=== PATIENT | male | born 1985 | race Caucasian/White ===

== ENCOUNTER 2019-02-19 00:49 | Inpatient (IN) ==
[2019-02-19 01:16] LABS: Bilirubin,Urine Negative (Negative); Blood,Urine Negative (Negative); Clarity,Urine Clear (Clear); Color,Urine Yellow (Yellow); Glucose,Urine (UA) Normal (Normal); Ketones,Urine Negative (Negative); Leukocyte Esterase,Urine Negative (Negative); Nitrite,Urine Negative (Negative); Protein,Urine Negative (Neg-Trace); Specific Gravity,Urine 1.009 (1.010-1.025); Urobilinogen,Urine Normal (Normal)
[2019-02-19 01:26] LABS: Amphetamine Screen,Urine Negative ng/mL (Cutoff=1000); Barbiturate Screen,Urine Negative ng/mL (Cutoff=200); Benzodiazepines Screen,Urine Negative ng/mL (Cutoff=200); Cannabinoid Screen,Urine Negative ng/mL (Cutoff = 50); Cocaine Screen,Urine Negative ng/mL (Cutoff= 300); Opiate Screen,Urine Negative ng/mL (Cutoff=300); Phencyclidine Screen,Urine Negative ng/mL (Cutoff=25)
[2019-02-19 02:04] LABS: Acetaminophen < 10 mcg/mL (10-20); BUN/Creatinine Ratio 15 (6-26); Basophils # 0.1 K/mcL (0.0-0.2); Basophils % 0.7 %; Blood Urea Nitrogen 12 mg/dL (6-20); Calcium 9.1 mg/dL (8.6-10.3); Carbon Dioxide 21 mEq/L (23-29); Chloride 109 mEq/L (98-107); Eosinophils # 0.1 K/mcL (0.0-0.6); Eosinophils % 1.1 %; Ethanol 110 mg/dL (Less than 10); Glucose 96 mg/dL (70-105); Hematocrit 46.9 % (37.5-50.1); Hemoglobin 16.6 g/dL (12.9-16.9); Immature Granulocytes % 0.5 % (0-4); Lymphocytes # 1.8 K/mcL (0.6-4.6); Lymphocytes % 14.7 %; Mean Corpuscular HGB Conc 35.4 g/dL (31.6-35.5); Mean Corpuscular Hemoglobin 29.5 pg (28.0-33.3); Mean Corpuscular Volume 83.3 fL (83.0-100.0); Mean Platelet Volume 10.7 fL (9.4-12.4); Monocytes # 0.5 K/mcL (0.0-1.3); Monocytes % 4.2 %; Neutrophils # 9.6 K/mcL (1.6-8.9); Osmolality,Calculated 288 (280-300); Platelet Count 269 K/mcL (140-400); Potassium 3.7 mEq/L (3.5-5.1); Red Blood Count 5.63 M/mcL (4.19-5.50); Red Cell Distribution Width 12.2 % (11.5-14.5); Salicylate < 2.5 mg/dL (15.0-30.0); Segmented Neutrophils % 78.8 %; Sodium 139 mEq/L (136-145); White Blood Count 12.2 K/mcL (4.3-11.1); eGFR For African Americans > 60 (> 60); eGFR For Non-African Americans > 60 (> 60)
[2019-02-19] MEDS ORDERED: *HR* LORazepam 1 MG TABLET PO PRN (05:52)
[2019-02-19] MEDS ORDERED: Haloperidol Lactate 5 MG/ML VIAL IM PRN (05:52)
[2019-02-19] MEDS ORDERED: MOM Conc 10 ML UD.LIQ PO PRN (05:52)
[2019-02-19] MEDS ORDERED: traZODone 50 MG TABLET PO PRN (05:52)
[2019-02-19] MEDS ORDERED: *HR* LORazepam 2 MG/ML VIAL IM PRN (05:52)
[2019-02-19] MEDS ORDERED: Ibuprofen 400 MG TABLET PO PRN (05:52)
[2019-02-19] MEDS ORDERED: hydrOXYzine pamoate 25 MG CAPSULE PO PRN (05:52)
[2019-02-19] MEDS ORDERED: Mag Hydrox/Al Hydrox/Simeth 30 ML UDC PO PRN (05:52)
[2019-02-19] MEDS: Nicotine 21 MG PATCH.TD24 TD SCH (12:24)
[2019-02-19] MEDS: FLUoxetine 20 MG CAPSULE PO SCH (12:25)
[2019-02-20] MEDS: Nicotine 21 MG PATCH.TD24 TD SCH (08:32)
[2019-02-20] MEDS: FLUoxetine 20 MG CAPSULE PO SCH (08:32)
[2019-02-20 09:06] VITALS: BP 114/67
== END 2019-02-20 10:55 | disposition home or self-care (01) | DRG 885 ==
LOC: EMEROOARM 00:49 → 1ANU 05:30
PROVIDERS: ADMIT Psychiatry & Neurology Psychiatry; ATTEND Psychiatry & Neurology Psychiatry